=== PATIENT | female | born 1980 | race Caucasian/White ===

== ENCOUNTER 2018-05-14 22:29 | Emergency (ER) | payer OTHER ==
[~2018-05-14] VITALS: Ht 160 cm; Wt 79.4 kg
[2018-05-14] MEDS ORDERED: CYMBALTA60 MG PO (22:45)
[2018-05-14] MEDS ORDERED: ADDERALL 30 MG30 MG PO (22:46)
[2018-05-14] MEDS ORDERED: SYNTHROID150 MCG PO (22:46)
[2018-05-15 00:27] VITALS: BP 158/98
== END 2018-05-15 00:32 | disposition left against medical advice (07) ==
LOC: ER 22:29
DX: L02.412 Cutaneous abscess of left axilla (principal); E89.0 Postprocedural hypothyroidism; F17.210 Nicotine dependence, cigarettes, uncomplicated; Z88.0 Allergy status to penicillin; Z88.2 Allergy status to sulfonamides; Z88.6 Allergy status to analgesic agent; Z88.8 Allergy status to other drugs, medicaments and biological substances

== ENCOUNTER 2019-04-20 02:50 | Emergency (ER) | payer OTHER ==
[~2019-04-20] VITALS: Ht 160 cm; Wt 77.1 kg
[~2019-04-20 02:50] MED LIST: ADDERALL 30 MG30 MG PO; CYMBALTA60 MG PO; SYNTHROID150 MCG PO
[2019-04-20] MEDS ORDERED: NORCO 5-325 TA1 EAC1 PO (05:17)
[2019-04-20 06:03] VITALS: BP 143/91
== END 2019-04-20 06:03 | disposition home or self-care (01) ==
LOC: ER 02:50
DX: S52.592A Other fractures of lower end of left radius, initial encounter for closed fracture (principal); F17.210 Nicotine dependence, cigarettes, uncomplicated; Z90.89 Acquired absence of other organs; Z88.6 Allergy status to analgesic agent; Z88.0 Allergy status to penicillin; Z88.2 Allergy status to sulfonamides; Z88.8 Allergy status to other drugs, medicaments and biological substances; W01.0XXA Fall on same level from slipping, tripping and stumbling without subsequent striking against object, initial encounter; Y92.89 Other specified places as the place of occurrence of the external cause; Y93.89 Activity, other specified; Y99.8 Other external cause status